=== PATIENT | male | born 1975 | race Caucasian/White ===

== ENCOUNTER 2022-04-15 19:30 | Emergency (ER) | payer OTHER ==
[2022-04-15 19:40] VITALS: BP 126/82; PULSE 69; RESP 18; TEMP 98.2; BMI 30.9
== END 2022-04-15 22:21 | disposition home or self-care (01) ==
LOC: JERFT 19:30
DX: M79.641 Pain in right hand (principal); M25.562 Pain in left knee; M25.572 Pain in left ankle and joints of left foot; M25.511 Pain in right shoulder; W19.XXXA Unspecified fall, initial encounter
CPT/HCPCS: 73030-TC-RT-FY; 73130-TC-RT-FY; 73562-TC-LT-FY; 73610-TC-LT-FY; 99285-25